=== PATIENT | female | born 1980 | race Caucasian/White ===

== ENCOUNTER 2019-06-04 09:37 | Outpatient (CLI) | payer OTHER ==
[~2019-06-04 09:37] MED LIST: Iopamidol 370 76% 100 ML VIAL ONE
--- NOTE | 2019-06-04 15:41 | CT ---
CT OF THE ABDOMEN AND PELVIS WITH IV CONTRAST: INDICATION: History of enlarged lymph nodes within the right inguinal for the past 3 months currently on antibiot ic therapy with no relief in size of the lymph nodes. Patient had a history of lymph node removal in this region 2 years ago. FINDINGS: No comparisons are available. Lung bases are clear. There is a 1.8 cm hypodense lesion involving segment 7 of the right hepatic lobe with areas of periph eral nodular enhancement. A similar-appearing lesion is seen in segment 7 near the dome on image 8 o f series 2 measuring 11 mm. The gallbladder, pancreas, adrenal glands, and spleen are normal appearing. There is a 4 mm nonobstr ucted calculus of the superior pole left kidney. The right kidney is normal-appearing. No free fluid or enlarged lymph nodes are seen within the upper abdomen. There is a normal appendix in the right lower quadrant. The reproductive structures, bladder, rectum , and perirectal soft tissues are unremarkable-appearing. Although there are shotty-appearing lymph nodes within the inguinal regions, none are pathologically enlarged. One of the more conspicuous lymph nodes measures 7 mm. An additional within the right ing uinal region measures 6 mm. No acute osseous abnormality is evident. IMPRESSION: 1. No suspicious lymphadenopathy. 2. Hypodense lesions of the right hepatic lobe are suspicious for hemangiomas. A followup MRI utili [facility] hemangioma protocol may be helpful for improved characterization. 3. Left nephrolithiasis. POS: CET
== END 2019-06-04 09:38 | disposition home or self-care (01) ==
LOC: SCSCT 09:37
DX: R59.0 Localized enlarged lymph nodes (principal); N92.6 Irregular menstruation, unspecified; N20.0 Calculus of kidney; K76.9 Liver disease, unspecified
CPT/HCPCS: 74177; Q9967